=== PATIENT | male | born 1985 | race Caucasian/White ===

== ENCOUNTER → 2017-02-05 | Outpatient (REF) | payer OTHER | LOC: M LAB REF 21:53 | PROVIDERS: ATTEND Physician Assistant Medical | DX: R35.0 Frequency of micturition (principal) ==

== ENCOUNTER → 2017-02-07 | Outpatient (CLI) | payer OTHER ==
[~2017-02-07] MED LIST: GASTROGRAFIN SOLUTION 30ML (Q9963) As Ordered ONE; ISOVUE-370 76% 100ML VIAL (Q9967) As Ordered ONE
--- NOTE | 2017-02-07 19:58 | REP ---
CT ABDOMEN AND PELVIS WITH IV CONTRAST: TECHNIQUE: Axial contrast enhanced images from the lung bases to the pubic symphysis using 100 mL Isovue 370 intravenous contrast material with multiplanar reformations. Visualized lungs bases are clear. Liver, spleen, adrenals, pancreas, and kidneys are essentially unremarkable. No mass is seen. There is no abdominal aortic aneurysm. There is no adenopathy. There is no free air or free fluid. There is no evidence of appendicitis. No bowel wall thickening is seen. There is no pelvic mass. Urinary bladder is unremarkable. Metallic clips are seen in the right inguinal region. No anterior abdominal defect is seen. There is no evidence of diverticulitis. IMPRESSION: No acute abnormalities are detected. Signed by Juanjose Villareal MD 02/08/2017 09:20 A
== END ==
LOC: M RAD 15:36
PROVIDERS: ATTEND Physician Assistant Medical
DX: R10.9 Unspecified abdominal pain (principal)

== ENCOUNTER → 2017-04-11 | Outpatient (REF) | payer OTHER | LOC: M SMT 13:20 | DX: Z30.2 Encounter for sterilization (principal) ==

== ENCOUNTER 2019-11-22 01:30 | Emergency (ER) | payer OTHER ==
[~2019-11-22] VITALS: Ht 162.6 cm; Wt 72.7 kg
[2019-11-22 01:50] VITALS: BP 132/92
== END 2019-11-22 02:24 | disposition home or self-care (01) ==
LOC: M ED 01:30
DX: F10.129 Alcohol abuse with intoxication, unspecified (principal)